=== PATIENT | male | born 1975 | race Two or more races ===

== ENCOUNTER 2017-12-06 23:57 | Emergency (ER) | payer MEDICAID ==
[~2017-12-06] VITALS: Ht 170.2 cm; Wt 81.6 kg
[2017-12-07] MEDS ORDERED: SODIUM CHLORIDE 0.9% 1,000 ML IVB ONE (00:51)
[2017-12-07 01:04] LABS: Basophils # (auto) 0.1 uL; Basophils % (auto) 1.3 % (0.0-2.0); Eosinophils # (auto) 0.2 uL; Eosinophils % (auto) 1.9 % (0.0-7.0); Hematocrit 45.5 % (41.0-53.0); Hemoglobin 15.9 g/dL (13.5-17.5); Lymphocytes # (auto) 2.2 uL; Lymphocytes % (auto) 24.9 % (10.0-50.0); Mean Corpuscular Hemoglobin 30.6 pg (28.0-32.0); Mean Corpuscular Hgb Conc. 34.9 g/dL (32.0-36.0); Mean Corpuscular Volume 87.8 fL (80.0-100.0); Monocytes # (auto) 0.6 uL; Monocytes % (auto) 6.4 % (0.0-12.0); Neutrophils # (auto) 5.8 uL; Neutrophils % (auto) 65.5 % (37.0-80.0); Nucleated Red Blood Cells % 0.1 %; Platelet Count (auto) 327 10^3/uL (140-450); Red Blood Cells 5.18 10^6/uL (4.5-5.90); Red Cell Distribution Width 13.8 % (11.8-14.3); White Blood Cell 8.9 10^3/uL (4.4-10.8)
[2017-12-07 01:14] LABS: Alanine Aminotransferase 27 U/L (16-61); Anion Gap 8 (5-15); Blood Urea Nitrogen 13 mg/dL (7-18); Calcium 8.5 mg/dL (8.5-10.1); Carbon Dioxide 24 mmol/L (21-32); Chloride 104 mmol/L (98-107); Magnesium 2.1 mg/dL (1.6-2.6); Potassium 3.9 mmol/L (3.5-5.1); Sodium 136 mmol/L (136-145)
[2017-12-07 01:16] LABS: Aspartate Aminotransferase 23 U/L (15-37); GFR African American 114 mL/min; GFR Non-African American 94 mL/min
[2017-12-07 01:19] LABS: INR 0.92 (0.9-1.15); Partial Thromboplastin Time 23.6 sec (22.64-33.71)
[2017-12-07 01:20] LABS: Alkaline Phosphatase 109 U/L (45-117); Bilirubin, Total 0.4 mg/dL (0.2-1.0)
[2017-12-07 01:21] LABS: Glucose 410 mg/dL (74-106)
[2017-12-07] MEDS ORDERED: ASPirin-EC 325mg tab PO ONE (03:15)
[2017-12-07] MEDS ORDERED: ONDANSETRON HCL 4 MG/2 ML VIAL IV ONE (03:45)
[2017-12-07] MEDS ORDERED: MORPHINE SULFATE 4 MG/ML SYR/VIAL IV ONE (03:45)
[2017-12-07] MEDS ORDERED: InsuLIN REG 1unit/0.01ml Soln (100units/ml) IV ONE (04:15)
[2017-12-07 04:19] LABS: Urine Bacteria FEW /hpf (None Seen); Urine Blood TRACE /uL (Negative); Urine Specific Gravity 1.043 (1.001-1.035); Urine WBC 1 /hpf (0 - 3)
[2017-12-07 04:27] VITALS: BP 136/73
== END 2017-12-07 04:41 | disposition home or self-care (01) ==
LOC: EDBD 23:57 → ER 12-07 00:03
DX: R07.89 Other chest pain (principal); E11.9 Type 2 diabetes mellitus without complications; I10 Essential (primary) hypertension
CPT/HCPCS: 36415; 71045; 80053; 81001; 82962; 83735; 83880; 84443; 84484; 85025; 85610; 85730; 93005; 94761; 99285; J7030

== ENCOUNTER 2021-04-19 10:24 | Inpatient (IN) | payer MEDICAID ==
[~2021-04-19] VITALS: Ht 157.5 cm; Wt 76.5 kg
[~2021-04-19 10:24] MED LIST: ATOR20TA50 PO; BENA40TA8 PO; ERGO1CAP23 PO; GLIP5TAB12 PO; LEVO750T8 PO; METF-372 PO; SIMV-8 PO
[2021-04-19] MEDS ORDERED: cloNIDine HCL 0.1 MG TAB PO ONE (10:45)
[2021-04-19 10:55] LABS: Eosinophils # (auto) 0.4 10 ^3/uL (0-0.8); Lymphocytes # (auto) 2.3 10 ^3/uL (0.4-5.4); White Blood Cell 8.7 10^3/uL (4.4-10.8)
[2021-04-19 10:56] LABS: Basophils # (auto) 0 10 ^3/uL (0-0.2); Basophils % (auto) 0.5 % (0.0-2.0); Hematocrit 35.2 % (41.0-53.0); Lymphocytes % (auto) 26.4 % (10.0-50.0); Mean Corpuscular Hemoglobin 29.3 pg (28.0-32.0); Mean Corpuscular Volume 86.3 fL (80.0-100.0); Monocytes # (auto) 0.4 10 ^3/uL (0-1.3); Neutrophils # (auto) 5.5 10 ^3/uL (1.6-8.6); Neutrophils % (auto) 63.1 % (37.0-80.0); Nucleated Red Blood Cells % 0.1 %; Red Blood Cells 4.08 10^6/uL (4.5-5.90); Red Cell Distribution Width 14.7 % (11.8-14.3)
[2021-04-19 11:21] LABS: Albumin 2.7 g/dL (3.4-5.0); Calcium 8.8 mg/dL (8.5-10.1); Potassium 4.3 mmol/L (3.5-5.1)
[2021-04-19 11:25] LABS: BUN/Creatinine Ratio 18.2; Bilirubin, Total 0.2 mg/dL (0.2-1.0); Total Protein 6.9 g/dL (6.4-8.2)
[2021-04-19] MEDS ORDERED: cefTRIAXone 1GM/50ML D5W 50 ML IV ONE (11:30)
[2021-04-19] MEDS ORDERED: CLINDAMYCIN 600MG IV 50 ML IV ONE ×2 (11:30→15:30)
[2021-04-19] MEDS ORDERED: NITROGLYCERIN 0.4 MG SL TAB SL PRN ×2 (15:15→16:00)
[2021-04-19] MEDS ORDERED: MORPHINE SULFATE INJECTION 2 MG/ML SYRG IV PRN ×3 (15:15→16:00)
[2021-04-19] MEDS ORDERED: BENAZEPRIL HCL 10 MG TAB PO ONE (15:30)
[2021-04-19] MEDS ORDERED: SODIUM CHLORIDE 0.9% 1,000 ML IV ONE (15:30)
[2021-04-19] MEDS ORDERED: DEXTROSE (50%) 50ML SYRG IV PRN (15:30)
[2021-04-19] MEDS ORDERED: AML5T PO (15:40)
[2021-04-19] MEDS ORDERED: GLIP5TAB12 PO (15:41)
[2021-04-19] MEDS ORDERED: SERT50TA19 PO (15:42)
[2021-04-19] MEDS ORDERED: GABA-339 PO (15:43)
[2021-04-19] MEDS ORDERED: INSLANTI SC (15:43)
[2021-04-19] MEDS ORDERED: IBUP600T28 PO (15:43)
[2021-04-19] MEDS ORDERED: DOCUSATE SOD 100 MG CAP PO PRN (16:00)
[2021-04-19] MEDS ORDERED: ACETAMINOPHEN 325 MG TAB PO PRN (16:00)
[2021-04-19] MEDS ORDERED: ALUM & MAG HYDROX-SIMETH LIQ(MAALOX) 30 ML PO PRN (16:00)
[2021-04-19] MEDS ORDERED: ENOXAPARIN SOD 40 MG/0.4 ML SYRINGE SC ONE (16:00)
[2021-04-19] MEDS ORDERED: LORazepam 0.5 MG TAB PO PRN (16:00)
[2021-04-19] MEDS ORDERED: ONDANSETRON HCL 4 MG/2 ML VIAL IV PRN (16:00)
[2021-04-19 16:36] LABS: Cholesterol 113 mg/dL (< 200); HDL Cholesterol 29 mg/dL (40-59); LDL Cholesterol 68 mg/dL (< 100); Triglycerides 125 mg/dL (< 150)
[2021-04-19] MEDS: InsuLIN REG 1unit/0.01ml Soln (100units/ml) SC SCH (16:53)
[2021-04-19] MEDS: ACCU-CHEK COMFORT CURVE STRIP VI SCH (16:54)
[2021-04-19 18:15] VITALS: BP 161/85
[2021-04-19] MEDS: hydrALAZINE HCL 20 MG/ML VL IV PRN (18:38)
[2021-04-19] MEDS: SODIUM CHLORIDE 0.9% 1,000 ML IV SCH (19:24)
[2021-04-19 20:00] VITALS: BP 130/75
[2021-04-20] MEDS: ACCU-CHEK COMFORT CURVE STRIP VI SCH ×5 (00:41→22:00)
[2021-04-20] MEDS: CLINDAMYCIN 600MG IV 50 ML IV SCH ×4 (00:42→22:00)
[2021-04-20] MEDS: ATORVASTATIN 20 MG TAB PO SCH ×2 (00:42→22:00)
[2021-04-20] MEDS: GABAPENTIN 300 MG CAP PO SCH ×4 (00:42→22:00)
[2021-04-20] MEDS: InsuLIN REG 1unit/0.01ml Soln (100units/ml) SC SCH ×5 (01:11→22:00)
[2021-04-20 05:00] VITALS: BP 143/83
[2021-04-20 06:20] LABS: INR 1.03 (0.9-1.15); Partial Thromboplastin Time 27.5 sec (23.6-33.0)
[2021-04-20 09:00] VITALS: BP 146/82
[2021-04-20] MEDS: ENOXAPARIN SOD 40 MG/0.4 ML SYRINGE SC SCH (09:39)
[2021-04-20] MEDS: ASPirin 81 mg TAB PO SCH (09:39)
[2021-04-20] MEDS: CHOLECALCIFEROL (VITD3) 2,000 UNIT CAP/TAB PO SCH (09:39)
[2021-04-20] MEDS: BENAZEPRIL HCL 10 MG TAB PO SCH (09:41)
[2021-04-20] MEDS: SODIUM CHLORIDE 0.9% 1,000 ML IV SCH (10:00)
[2021-04-20] MEDS: CEFTRIAXONE SODIUM 2 GM in D5W 5% 50 ML IV SCH (12:04)
[2021-04-20 13:00] VITALS: BP 134/78
[2021-04-20] MEDS: HYDROcodone-ACET 5/325MG TAB PO PRN (15:04)
[2021-04-20 17:00] VITALS: BP 163/88
[2021-04-20 20:00] VITALS: BP 156/96
[2021-04-20 22:00] VITALS: BP 140/87
[2021-04-21] MEDS: SODIUM CHLORIDE 0.9% 1,000 ML IV SCH ×2 (00:50→17:30)
[2021-04-21 05:00] VITALS: BP 124/69
[2021-04-21] MEDS: GABAPENTIN 300 MG CAP PO SCH ×3 (06:00→22:18)
[2021-04-21] MEDS: CLINDAMYCIN 600MG IV 50 ML IV SCH ×3 (06:00→22:18)
[2021-04-21] MEDS: InsuLIN REG 1unit/0.01ml Soln (100units/ml) SC SCH ×4 (06:00→22:14)
[2021-04-21] MEDS: ACCU-CHEK COMFORT CURVE STRIP VI SCH ×4 (07:00→22:18)
[2021-04-21 09:00] VITALS: BP 160/95
[2021-04-21] MEDS: CEFTRIAXONE SODIUM 2 GM in D5W 5% 50 ML IV SCH (09:48)
[2021-04-21] MEDS: BENAZEPRIL HCL 10 MG TAB PO SCH (09:49)
[2021-04-21] MEDS: CHOLECALCIFEROL (VITD3) 2,000 UNIT CAP/TAB PO SCH (09:50)
[2021-04-21] MEDS: ENOXAPARIN SOD 40 MG/0.4 ML SYRINGE SC SCH (09:50)
[2021-04-21] MEDS: ASPirin 81 mg TAB PO SCH (09:50)
[2021-04-21] MEDS: HYDROcodone-ACET 5/325MG TAB PO PRN (11:39)
[2021-04-21 13:00] VITALS: BP 166/94
[2021-04-21] MEDS: hydrALAZINE HCL 20 MG/ML VL IV PRN (16:49)
[2021-04-21 17:00] VITALS: BP 163/93
[2021-04-21 20:00] VITALS: BP 155/69
[2021-04-21 22:00] VITALS: BP 155/69
[2021-04-21] MEDS: ATORVASTATIN 20 MG TAB PO SCH (22:18)
[2021-04-22 05:00] VITALS: BP 162/90
[2021-04-22] MEDS: GABAPENTIN 300 MG CAP PO SCH ×3 (05:50→21:15)
[2021-04-22] MEDS: ACCU-CHEK COMFORT CURVE STRIP VI SCH ×4 (05:52→21:23)
[2021-04-22] MEDS: CLINDAMYCIN 600MG IV 50 ML IV SCH ×3 (05:52→21:14)
[2021-04-22] MEDS: InsuLIN REG 1unit/0.01ml Soln (100units/ml) SC SCH ×4 (05:52→21:24)
[2021-04-22 09:00] VITALS: BP 175/90
[2021-04-22] MEDS: ENOXAPARIN SOD 40 MG/0.4 ML SYRINGE SC SCH (09:51)
[2021-04-22] MEDS: CEFTRIAXONE SODIUM 2 GM in D5W 5% 50 ML IV SCH (09:53)
[2021-04-22] MEDS: ASPirin 81 mg TAB PO SCH (09:54)
[2021-04-22] MEDS: CHOLECALCIFEROL (VITD3) 2,000 UNIT CAP/TAB PO SCH (09:55)
[2021-04-22] MEDS: BENAZEPRIL HCL 10 MG TAB PO SCH (09:55)
[2021-04-22] MEDS: hydrALAZINE HCL 20 MG/ML VL IV PRN (09:56)
[2021-04-22] MEDS: SODIUM CHLORIDE 0.9% 1,000 ML IV SCH (10:08)
[2021-04-22] MEDS: HYDROcodone-ACET 5/325MG TAB PO PRN ×2 (11:50→21:24)
[2021-04-22 13:00] VITALS: BP 139/87
[2021-04-22 17:00] VITALS: BP 135/75
[2021-04-22] MEDS: ATORVASTATIN 20 MG TAB PO SCH (21:14)
[2021-04-22 22:00] VITALS: BP 148/82
[2021-04-23] VITALS (10 sets, daily range): BP systolic 112–160; BP diastolic 66–87
[2021-04-23] MEDS: SODIUM CHLORIDE 0.9% 1,000 ML IV SCH ×2 (02:55→19:30)
[2021-04-23] MEDS: CLINDAMYCIN 600MG IV 50 ML IV SCH ×3 (06:21→21:56)
[2021-04-23] MEDS: GABAPENTIN 300 MG CAP PO SCH ×3 (06:21→21:56)
[2021-04-23] MEDS: ACCU-CHEK COMFORT CURVE STRIP VI SCH ×4 (06:28→21:53)
[2021-04-23] MEDS: InsuLIN REG 1unit/0.01ml Soln (100units/ml) SC SCH ×4 (06:29→21:57)
[2021-04-23] MEDS ORDERED: IODIXANOL 320MG/ML 100ML BTL IV ONE (07:26)
[2021-04-23] MEDS ORDERED: LIDOCAINE 2%HCL (LOCAL ANESTH.) INJ 20ML MDV ONE (07:26)
[2021-04-23] MEDS ORDERED: fentaNYL CITRATE 100 MCG/2 ML VL ONE (08:27)
[2021-04-23] MEDS ORDERED: SODIUM CHL 0.9% 50 ML ONE (08:27)
[2021-04-23] MEDS ORDERED: MIDAZOLAM HCL 2MG/2ML 2ml VIAL (1mg/ml) ONE (08:27)
[2021-04-23] MEDS ORDERED: ANGIOMAX 250 MG VIAL IV ONE (08:27)
[2021-04-23] MEDS ORDERED: VERAPAMIL 2.5MG/ML INJ 2ML VIAL IV ONE (08:31)
[2021-04-23] MEDS ORDERED: NITROGLYCERIN 5MG/ML 10ML VIAL IV ONE (08:32)
[2021-04-23] MEDS ORDERED: NITROGLYCERIN 0.4MG/DOSE SPRAY 4.9GM ONE (08:51)
[2021-04-23] MEDS ORDERED: hydrALAZINE HCL 20 MG/ML VL ONE (08:55)
[2021-04-23] MEDS: CHOLECALCIFEROL (VITD3) 2,000 UNIT CAP/TAB PO SCH (10:00)
[2021-04-23] MEDS: CEFTRIAXONE SODIUM 2 GM in D5W 5% 50 ML IV SCH (10:00)
[2021-04-23] MEDS: ASPirin 81 mg TAB PO SCH (10:00)
[2021-04-23] MEDS: ENOXAPARIN SOD 40 MG/0.4 ML SYRINGE SC SCH (11:24)
[2021-04-23] MEDS: BENAZEPRIL HCL 10 MG TAB PO SCH (11:48)
[2021-04-23] MEDS: HYDROcodone-ACET 5/325MG TAB PO PRN ×2 (11:49→20:22)
[2021-04-23] MEDS: ATORVASTATIN 20 MG TAB PO SCH (21:56)
[2021-04-24 05:00] VITALS: BP 159/89
[2021-04-24] MEDS: ACCU-CHEK COMFORT CURVE STRIP VI SCH ×4 (06:31→22:19)
[2021-04-24] MEDS: InsuLIN REG 1unit/0.01ml Soln (100units/ml) SC SCH ×4 (06:32→22:22)
[2021-04-24] MEDS: CLINDAMYCIN 600MG IV 50 ML IV SCH ×3 (06:35→22:11)
[2021-04-24] MEDS: BENAZEPRIL HCL 10 MG TAB PO SCH (06:35)
[2021-04-24] MEDS: GABAPENTIN 300 MG CAP PO SCH ×3 (06:35→22:11)
[2021-04-24 09:00] VITALS: BP_SYST 111; BP_SYST 184; BP_DIAS 64; BP_DIAS 97
[2021-04-24] MEDS: CEFTRIAXONE SODIUM 2 GM in D5W 5% 50 ML IV SCH (09:51)
[2021-04-24] MEDS: cloNIDine HCL 0.1 MG TAB PO PRN (10:54)
[2021-04-24] MEDS ORDERED: PROPOFOL 10 MG/ML 20 ML IV ONE (11:23)
[2021-04-24] MEDS ORDERED: SODIUM CHLORIDE LOCK 10 ML ONE (11:23)
[2021-04-24] MEDS ORDERED: MIDAZOLAM HCL 2MG/2ML 2ml VIAL (1mg/ml) ONE (11:23)
[2021-04-24] MEDS ORDERED: fentaNYL CITRATE 100 MCG/2 ML VL ONE (11:23)
[2021-04-24] MEDS ORDERED: ONDANSETRON HCL 4 MG/2 ML VIAL ONE (11:23)
[2021-04-24] MEDS ORDERED: METOCLOPRAMIDE HCL 5MG/ml INJ 2ml VIAL IV PRN (11:30)
[2021-04-24] MEDS ORDERED: HYDROmorphone HCL 2 MG/ML VL IV PRN (11:30)
[2021-04-24] MEDS ORDERED: MORPHINE SULFATE 4 MG/ML SYR/VIAL IV PRN (11:30)
[2021-04-24] MEDS ORDERED: ACCU-CHEK COMFORT CURVE STRIP VI ONE (11:30)
[2021-04-24] MEDS ORDERED: BUPIVACAINE 0.5% P/F INJ 10 ML VIAL ONE (11:51)
[2021-04-24] MEDS ORDERED: LIDOCAINE 1% HCL (LOCAL ANESTH.) INJ 20ML MDV ONE (11:51)
[2021-04-24] MEDS ORDERED: DAKINS HALF STR 0.25% (NaHypochlorite) 473 ML TOPICAL SOL TOP ONE (12:00)
[2021-04-24 12:55] VITALS: BP_SYST 119; BP_SYST 141; BP_DIAS 76; BP_DIAS 79
[2021-04-24] MEDS: hydrALAZINE HCL 20 MG/ML VL IV PRN (13:16)
[2021-04-24] MEDS: ASPirin 81 mg TAB PO SCH (15:07)
[2021-04-24] MEDS: ENOXAPARIN SOD 40 MG/0.4 ML SYRINGE SC SCH (15:07)
[2021-04-24] MEDS: CHOLECALCIFEROL (VITD3) 2,000 UNIT CAP/TAB PO SCH (15:08)
[2021-04-24 17:00] VITALS: BP 123/80
[2021-04-24 22:00] VITALS: BP 165/101
[2021-04-24] MEDS: ATORVASTATIN 20 MG TAB PO SCH (22:11)
[2021-04-25 05:18] VITALS: BP 161/91
[2021-04-25] MEDS: GABAPENTIN 300 MG CAP PO SCH ×2 (06:00→14:29)
[2021-04-25] MEDS: CLINDAMYCIN 600MG IV 50 ML IV SCH ×2 (06:00→14:29)
[2021-04-25] MEDS: cloNIDine HCL 0.1 MG TAB PO PRN ×2 (06:01→11:47)
[2021-04-25] MEDS: InsuLIN REG 1unit/0.01ml Soln (100units/ml) SC SCH ×2 (06:13→11:33)
[2021-04-25] MEDS: ACCU-CHEK COMFORT CURVE STRIP VI SCH ×2 (06:13→11:28)
[2021-04-25] MEDS: HYDROcodone-ACET 5/325MG TAB PO PRN ×2 (06:18→14:36)
[2021-04-25 08:00] VITALS: BP 128/64
[2021-04-25] MEDS: ASPirin 81 mg TAB PO SCH (09:35)
[2021-04-25] MEDS: ENOXAPARIN SOD 40 MG/0.4 ML SYRINGE SC SCH (09:35)
[2021-04-25] MEDS: CHOLECALCIFEROL (VITD3) 2,000 UNIT CAP/TAB PO SCH (09:35)
[2021-04-25] MEDS: CEFTRIAXONE SODIUM 2 GM in D5W 5% 50 ML IV SCH (09:37)
[2021-04-25] MEDS: BENAZEPRIL HCL 10 MG TAB PO SCH (09:37)
[2021-04-25 11:37] VITALS: BP 128/64
[2021-04-25 12:00] VITALS: BP 169/96
[2021-04-25 16:00] VITALS: BP 158/89
[2021-04-25] MEDS ORDERED: DAKINS HALF STR 0.25% (NaHypochlorite) 473 ML TOPICAL SOL TOP SCH (22:00)
== END 2021-04-25 16:25 | disposition home or self-care (01) | DRG 364 ==
LOC: ER 10:24 → OVERFLOW 15:01 → CENTRAL 22:14
PROVIDERS: ADMIT Hospitalist; ATTEND Family Medicine
PROC: B41G1ZZ Fluoroscopy of Left Lower Extremity Arteries using Low Osmolar Contrast (ICD-10-PCS; principal; 2021-04-23)
PROC: 047L3ZZ Dilation of Left Femoral Artery, Percutaneous Approach (ICD-10-PCS; 2021-04-23)
PROC: 047N3ZZ Dilation of Left Popliteal Artery, Percutaneous Approach (ICD-10-PCS; 2021-04-23)
PROC: B41F1ZZ Fluoroscopy of Right Lower Extremity Arteries using Low Osmolar Contrast (ICD-10-PCS; 2021-04-23)
PROC: 04CL3ZZ Extirpation of Matter from Left Femoral Artery, Percutaneous Approach (ICD-10-PCS; 2021-04-23)
PROC: 04CN3ZZ Extirpation of Matter from Left Popliteal Artery, Percutaneous Approach (ICD-10-PCS; 2021-04-23)
PROC: 0QBP0ZZ Excision of Left Metatarsal, Open Approach (ICD-10-PCS; 2021-04-24)
DX: E11.69 Type 2 diabetes mellitus with other specified complication (principal); L97.529 Non-pressure chronic ulcer of other part of left foot with unspecified severity; E11.52 Type 2 diabetes mellitus with diabetic peripheral angiopathy with gangrene; E44.0 Moderate protein-calorie malnutrition; E11.21 Type 2 diabetes mellitus with diabetic nephropathy; E11.42 Type 2 diabetes mellitus with diabetic polyneuropathy; E88.09 Other disorders of plasma-protein metabolism, not elsewhere classified; E11.621 Type 2 diabetes mellitus with foot ulcer; L03.032 Cellulitis of left toe; E11.40 Type 2 diabetes mellitus with diabetic neuropathy, unspecified; I10 Essential (primary) hypertension; I16.1 Hypertensive emergency; E66.01 Morbid (severe) obesity due to excess calories; Z20.822 Contact with and (suspected) exposure to COVID-19; E78.00 Pure hypercholesterolemia, unspecified; E78.5 Hyperlipidemia, unspecified; Z79.4 Long term (current) use of insulin; Z79.899 Other long term (current) drug therapy; Z82.49 Family history of ischemic heart disease and other diseases of the circulatory system; Z83.3 Family history of diabetes mellitus; Z89.412 Acquired absence of left great toe; Z98.62 Peripheral vascular angioplasty status; Z68.37 Body mass index [BMI] 37.0-37.9, adult
CPT/HCPCS: 36415; 37225; 73700; 75716; 80053; 80061; 82962; 83036; 83605; 84484; 85025; 85610; 85730; 86850; 86900; 86901; 87040; 87070; 87075; 87205; 87426; 93925; 96365; 96368; 99152; 99153; C1724; G0378; J0696; J1815; J2001; J2250; J2405; J2704; J3490; J7060; Q9967

== ENCOUNTER 2022-03-21 11:47 | Inpatient (IN) | payer MEDICAID ==
[~2022-03-21] VITALS: Ht 154.9 cm; Wt 75.1 kg
[~2022-03-21 11:47] MED LIST changes: +AML5T PO; -BENA40TA8 PO; -ERGO1CAP23 PO; +GABA-339 PO; +IBUP600T28 PO; +INSLANTI SC; -LEVO750T8 PO; +SERT50TA19 PO; -SIMV-8 PO
[2022-03-21 13:42] LABS: Potassium 5.1 mmol/L (3.5-5.1)
[2022-03-21 13:52] LABS: Albumin 4.1 g/dL (3.4-5.0); BUN/Creatinine Ratio 14.9; Bilirubin, Total 0.4 mg/dL (0.2-1.0); CRP High Sensitivity 0.07 mg/dL (< 0.3); Calcium 8.8 mg/dL (8.5-10.1); Total Protein 7.9 g/dL (6.4-8.2)
[2022-03-21 14:00] LABS: Magnesium 4.2 mg/dL (1.6-2.6)
[2022-03-21] MEDS ORDERED: SODIUM CHLORIDE 0.9% 1,000 ML IV ONE ×3 (15:00→18:45)
[2022-03-21 15:44] LABS: Basophils # (auto) 0.1 10 ^3/uL (0-0.2); Basophils % (auto) 1.1 % (0.0-2.0); Eosinophils # (auto) 0.2 10 ^3/uL (0-0.8); Eosinophils % (auto) 1.8 % (0.0-7.0); Hematocrit 41.4 % (41.0-53.0); Hemoglobin 13.7 g/dL (13.5-17.5); Lymphocytes % (auto) 46.4 % (10.0-50.0); Mean Corpuscular Hemoglobin 27.6 pg (28.0-32.0); Mean Corpuscular Hgb Conc. 33.1 g/dL (32.0-36.0); Mean Corpuscular Volume 83.3 fL (80.0-100.0); Monocytes # (auto) 0.6 10 ^3/uL (0-1.3); Monocytes % (auto) 6.6 % (0.0-12.0); Neutrophils # (auto) 3.8 10 ^3/uL (1.6-8.6); Neutrophils % (auto) 44.1 % (37.0-80.0); Nucleated Red Blood Cells % 0.1 %; Red Blood Cells 4.97 10^6/uL (4.5-5.90); Red Cell Distribution Width 15.2 % (11.8-14.3); White Blood Cell 8.6 10^3/uL (4.4-10.8)
[2022-03-21] MEDS ORDERED: ALUM & MAG HYDROX-SIMETH LIQ(MAALOX) 30 ML PO ONE (16:00)
[2022-03-21] MEDS ORDERED: FAMOTIDINE (10MG/ML) 2ML VL IV ONE (16:00)
[2022-03-21] MEDS ORDERED: ONDANSETRON HCL 4 MG/2 ML VIAL IV ONE (16:00)
[2022-03-21] MEDS ORDERED: LIDOCAINE VISCOUS 2% 15ML UD PO ONE (16:00)
[2022-03-21] MEDS ORDERED: MORPHINE SULFATE INJ 2 MG/ml SYRG IV PRN (19:00)
[2022-03-21] MEDS ORDERED: NITROGLYCERIN 0.4 MG SL TAB SL PRN (19:00)
[2022-03-21] MEDS ORDERED: ONDANSETRON HCL 4 MG/2 ML VIAL IV PRN (19:15)
[2022-03-21] MEDS ORDERED: DEXTROSE (50%) 50ML SYRG IV PRN (19:15)
[2022-03-21 20:05] LABS: Cholesterol 314 mg/dL (< 200); HDL Cholesterol 30 mg/dL (40-59); LDL Cholesterol 206 mg/dL (< 100); Triglycerides 388 mg/dL (< 150)
[2022-03-21] MEDS ORDERED: INSULIN LANTUS (GLARGINE) 1 /0.01ml (100units/ml) SC SCH (22:00)
[2022-03-21] MEDS: InsuLIN REG 1unit/0.01ml Soln (100units/ml) SC SCH (22:00)
[2022-03-21] MEDS: ACCU-CHEK COMFORT CURVE STRIP VI SCH (22:17)
[2022-03-21] MEDS: HEPARIN SODIUM (PORCINE) 5000 UNITS/ML 1ML VIAL SC SCH (22:31)
[2022-03-21] MEDS: SODIUM BICARBONATE 50ML VIAL 50 ML in SOD CHL 0.45% 1,000 ML IV SCH (22:31)
[2022-03-21] MEDS: INSULIN LANTUS (GLARGINE) 1 /0.01ml (100units/ml) SC SCH (22:35)
[2022-03-22] MEDS: ACCU-CHEK COMFORT CURVE STRIP VI SCH ×4 (07:00→21:07)
[2022-03-22] MEDS: InsuLIN REG 1unit/0.01ml Soln (100units/ml) SC SCH ×4 (07:00→21:07)
[2022-03-22 07:30] LABS: Basophils # (auto) 0.1 10 ^3/uL (0-0.2); Basophils % (auto) 1.2 % (0.0-2.0); Eosinophils # (auto) 0.2 10 ^3/uL (0-0.8); Eosinophils % (auto) 2.4 % (0.0-7.0); Hematocrit 38.9 % (41.0-53.0); Hemoglobin 12.9 g/dL (13.5-17.5); Lymphocytes # (auto) 2.4 10 ^3/uL (0.4-5.4); Lymphocytes % (auto) 33.3 % (10.0-50.0); Mean Corpuscular Hemoglobin 27.5 pg (28.0-32.0); Mean Corpuscular Hgb Conc. 33.2 g/dL (32.0-36.0); Monocytes # (auto) 0.5 10 ^3/uL (0-1.3); Monocytes % (auto) 6.9 % (0.0-12.0); Neutrophils % (auto) 56.2 % (37.0-80.0); Nucleated Red Blood Cells % 0.1 %; Red Blood Cells 4.69 10^6/uL (4.5-5.90); Red Cell Distribution Width 14.7 % (11.8-14.3); White Blood Cell 7.1 10^3/uL (4.4-10.8)
[2022-03-22 07:48] LABS: Albumin 3.5 g/dL (3.4-5.0); Calcium 8.6 mg/dL (8.5-10.1); Potassium 4.4 mmol/L (3.5-5.1)
[2022-03-22 07:53] LABS: BUN/Creatinine Ratio 22.4; Bilirubin, Total 0.4 mg/dL (0.2-1.0); Total Protein 7.2 g/dL (6.4-8.2)
[2022-03-22] MEDS: SODIUM BICARBONATE 50ML VIAL 50 ML in SOD CHL 0.45% 1,000 ML IV SCH ×2 (08:32→16:50)
[2022-03-22] MEDS: SEVELAMER 800 MG TAB PO SCH ×3 (08:33→18:00)
[2022-03-22] MEDS: B-COMPLEX W/ C & FOLIC ACID(NEPHROVITE TAB) PO SCH (08:34)
[2022-03-22] MEDS: PANTOPRAZOLE 40 MG/10 ML VIAL INJ IV SCH (08:34)
[2022-03-22] MEDS: HEPARIN SODIUM (PORCINE) 5000 UNITS/ML 1ML VIAL SC SCH ×2 (10:08→21:06)
[2022-03-22 12:00] LABS: Alcohol, Urine < 3.0 mg/dL (0-10); Amphetamine Screen, Urine NEGATIVE (NEGATIVE); Barbiturate Scree,Urine NEGATIVE (NEGATIVE); Benzodiazephine Screen, Urine NEGATIVE (NEGATIVE); Cannabinoid Screen, Urine NEGATIVE (NEGATIVE); Cocaine Screen, Urine NEGATIVE (NEGATIVE); Creatinine, Urine 80 mg/dL (30.0-125.0); Opiate Scree,Urine NEGATIVE (NEGATIVE); Phencyclidine Screen, Urine NEGATIVE (NEGATIVE); Protein, Urine 47.2 mg/dL (0.0-11.9); Sodium Urine 31 mmol/L (40-220)
[2022-03-22 12:27] LABS: Urine Bacteria NONE SEEN /hpf (None Seen); Urine Blood Negative /uL (Negative); Urine Specific Gravity 1.009 (1.001-1.035); Urine WBC <1 /hpf (0 - 3)
[2022-03-22] MEDS: INSULIN LANTUS (GLARGINE) 1 /0.01ml (100units/ml) SC SCH (21:06)
[2022-03-22 22:00] VITALS: BP 130/73
[2022-03-23] MEDS: SODIUM BICARBONATE 50ML VIAL 50 ML in SOD CHL 0.45% 1,000 ML IV SCH ×4 (02:13→08:45)
[2022-03-23 05:00] VITALS: BP 135/73
[2022-03-23] MEDS: ACCU-CHEK COMFORT CURVE STRIP VI SCH ×2 (06:16→12:09)
[2022-03-23] MEDS: InsuLIN REG 1unit/0.01ml Soln (100units/ml) SC SCH ×2 (06:23→12:10)
[2022-03-23 06:32] LABS: Albumin 3.3 g/dL (3.4-5.0); Calcium 8.4 mg/dL (8.5-10.1); Potassium 4.4 mmol/L (3.5-5.1)
[2022-03-23 06:35] LABS: BUN/Creatinine Ratio 25.1; Bilirubin, Total 0.2 mg/dL (0.2-1.0)
[2022-03-23] MEDS: SEVELAMER 800 MG TAB PO SCH (08:00)
[2022-03-23 10:00] VITALS: BP 141/68
[2022-03-23] MEDS ORDERED: SODIUM CHLORIDE 0.9% 1,000 ML IV SCH (10:15)
[2022-03-23] MEDS: B-COMPLEX W/ C & FOLIC ACID(NEPHROVITE TAB) PO SCH (11:54)
[2022-03-23] MEDS: PANTOPRAZOLE 40 MG/10 ML VIAL INJ IV SCH (12:02)
[2022-03-23] MEDS: HEPARIN SODIUM (PORCINE) 5000 UNITS/ML 1ML VIAL SC SCH (12:04)
[2022-03-23 12:12] VITALS: BP 159/85
[2022-03-24 12:51] LABS: Hepatitis C Antibody Negative (Negative)
== END 2022-03-23 17:17 | disposition home or self-care (01) | DRG 249 ==
LOC: ER 11:47 → TELE 18:50 → TELE-WESTW 03-22 17:57
PROVIDERS: ADMIT Registered Nurse; ATTEND Registered Nurse
DX: E86.0 Dehydration (principal); K52.9 Noninfective gastroenteritis and colitis, unspecified; N17.0 Acute kidney failure with tubular necrosis; D63.1 Anemia in chronic kidney disease; E11.22 Type 2 diabetes mellitus with diabetic chronic kidney disease; I95.9 Hypotension, unspecified; E83.41 Hypermagnesemia; E78.5 Hyperlipidemia, unspecified; E11.65 Type 2 diabetes mellitus with hyperglycemia; I12.9 Hypertensive chronic kidney disease with stage 1 through stage 4 chronic kidney disease, or unspecified chronic kidney disease; Z20.822 Contact with and (suspected) exposure to COVID-19; K29.70 Gastritis, unspecified, without bleeding; T39.395A Adverse effect of other nonsteroidal anti-inflammatory drugs [NSAID], initial encounter; N18.9 Chronic kidney disease, unspecified; Z82.49 Family history of ischemic heart disease and other diseases of the circulatory system; Z83.3 Family history of diabetes mellitus; Y92.89 Other specified places as the place of occurrence of the external cause; Z79.4 Long term (current) use of insulin
CPT/HCPCS: 36415; 36600; 71045; 76775; 80053; 80061; 80307; 81001; 82306; 82570; 82805; 82962; 83036; 83605; 83735; 83880; 83970; 84100; 84156; 84300; 84443; 84484; 85025; 86141; 86803; 87340; 93005; 96361; 96374; C9113; G0378; J1815; J3490